=== PATIENT | female | born 2000 | race Caucasian/White ===

== ENCOUNTER 2022-05-28 18:37 | Emergency (ER) | payer OTHER, SELFPAY ==
--- NOTE | ~2022-05-28 | CT_ITS ---
EXAMINATION: CT abdomen pelvis w con DATE: 05/28/2022 22:53 INDICATION: UTI, flank pain TECHNIQUE: Computed tomography (CT) of the abdomen and pelvis was performed with 100 mL Omnipaque-350 intravenous contrast. Automated exposure control and iterative reconstruction technique were employe d. The dose-length product was 299.01 mGy-cm. COMPARISON: None. FINDINGS: Lower thorax: Left lower lobe granuloma/hamartoma. Liver: Normal. Biliary/Gallbladder: The gallbladder is partially collapsed. No bile duct dilation. Pancreas: No mass or duct dilation. Spleen: Normal. Adrenals:No mass. Kidneys: Patchy areas of hypoenhancement in the right upper pole, and to a lesser extent in the left upper pole. Simple left midpole cyst. Bilateral urothelial enhancement. GI tract: No small or large bowel dilation. Normal appendix. Mesentery/Peritoneum: No ascites, mass, or free air. Retroperitoneum: No mass. Pelvis: Bladder wall thickening with surrounding inflammatory change. IUD, in good position. Soft Tissues: Soft tissues and body wall unremarkable. Bones: No acute osseous finding. IMPRESSION: Cystitis, with bilateral ascending infection and bilateral pyelonephritis. Reviewed, dictated and finalized at location K.
[2022-05-28 18:55] VITALS: BP 105/65; PULSE 117; RESP 16; TEMP 37.8; O2SAT 98
[2022-05-28 19:12] LABS: Appearance Urine Slightly Cloudy (Clear); Bilirubin Urine 1+ (Negative); Blood Urine 3+ (Negative); Color Urine Yellow (Yellow); Glucose Urine UA Negative (Negative); Ketones Urine Trace mg/dL (Negative); Leukocyte Esterase Ur 2+ LEU/UL (Negative); Nitrate Urine Negative (Negative); Protein Urine 2+ mg/dL (Negative); Specific Grav Ur 1.015 (1.001-1.035); pH Urine 5.5 (5.0-9.0)
[2022-05-28 19:29] LABS: Mucus Urine Rare /lpf; RBC Urine >75 /hpf (0-2); Squamous Epithelial Cell Urine Many /hpf (Few); WBC Urine >75 /hpf
[2022-05-28 19:32] LABS: Add Urine Microscopic? YES
[2022-05-28 21:25] VITALS: BP 125/79; PULSE 95; RESP 20; O2SAT 100
--- NOTE | 2022-05-28 21:44 | ED.FEMALEGU ---
HPI - Female Genitourinary General Chief complaint: Urogenital-Female <Liza Mackenzie PA-C - Last Filed: 05/29/22 00:07> Stated complaint: i think i have a kidney infection <Liza Mackenzie PA-C - Last Filed: 05/29/22 00:07> Time Seen by Provider: 05/28/22 21:24 <Lzia Mackenzie PA-C - Last Filed: 05/29/22 00:07> Source: patient <Liza Mackenzie PA-C - Last Filed: 05/29/22 00:07> Mode of arrival: ambulatory <Liza Mackenzie PA-C - Last Filed: 05/29/22 00:07> Limitations: no limitations <Liza Mackenzie PA-C - Last Filed: 05/29/22 00:07> History of Present Illness HPI Narrative: This is a 21 year old female that presents to the ER for dysuria x 4 days. Associated with urinary frequency, flank pain and fevers. Denies vomiting. <Liza Mackenzie PA-C - Last Filed: 05/29/22 00:07> Related Data Allergies/Adverse reactions: Allergies Allergy/AdvReac Type Severity Reaction Status Date / Time No Known Allergies Allergy Verified 05/28/22 21:51 <Liza Mackenzie PA-C - Last Filed: 05/29/22 00:07> Review of Systems Review of Systems: CONSTITUTIONAL: Reports fever GASTROINTESTINAL: Reports flank pain, Denies nausea, vomiting GENITOURINARY: Reports dysuria. Denies hematuria. <Liza Mackenzie PA-C - Last Filed: 05/29/22 00:07> All systems reviewed & are unremarkable except as noted in HPI and below <Liza Mackenzie PA-C - Last Filed: 05/29/22 00:07> PENDING SALE TO [facility] Past Medical History Medical History: Medical History (Updated 05/29/22 @ 00:03 by Liza Mackenzie PA-C) No active medical problems <Liza Mackenzie PA-C - Last Filed: 05/29/22 00:07> Social History Social History: Social History (Updated 05/28/22 @ 21:45 by Liza Mackenzie PA-C) Smoking status: Never smoker <Liza Mackenzie PA-C - Last Filed: 05/29/22 00:07> Exam Narrative: GENERAL: Well-appearing, well-nourished, and in no acute distress. HEAD: Normocephalic, atraumatic. EYES: EOMI. CHEST: Clear to auscultation. No respiratory distress. No wheezes rales or rhonchi HEART: Regular rate and rhythm. No murmur heard. Normal peripheral pulses. ABDOMEN: Soft, nontender, nondistended, normal active bowel sounds. EXTREMITIES: Normal range of motion. No edema. SKIN: Warm, dry, no rash. NEURO: No focal deficits. Alert and oriented x3. PSYCH: Normal mood and affect <Liza Mackenzie PA-C - Last Filed: 05/29/22 00:07> Course COLLEGE ADVISOR/PA Physician Supervision For this patient encounter, I reviewed the COLLEGE ADVISOR or PA documentation, treatment plan, and medical decision making <Rc Shepherd MD - Last Filed: 05/29/22 03:16> Vital Signs Vital signs: Vital Signs Temperature 100.1 F H 05/28/22 18:55 Pulse Rate 117 H 05/28/22 18:55 Respiratory Rate 16 05/28/22 18:55 Blood Pressure 105/65 05/28/22 18:55 Pulse Oximetry 98 05/28/22 18:55 Oxygen Delivery Room Air 05/28/22 18:55 Temperature 98.4 F 05/29/22 00:10 Pulse Rate 97 05/29/22 00:10 Respiratory Rate 13 05/29/22 00:10 Blood Pressure 104/64 05/29/22 00:10 Pulse Oximetry 98 05/29/22 00:10 Oxygen Delivery Room Air 05/28/22 18:55 <Liza Mackenzie PA-C - Last Filed: 05/29/22 00:07> Vital Signs Temperature 100.1 F H 05/28/22 18:55 Pulse Rate 117 H 05/28/22 18:55 Respiratory Rate 16 05/28/22 18:55 Blood Pressure 105/65 05/28/22 18:55 Pulse Oximetry 98 05/28/22 18:55 Oxygen Delivery Room Air 05/28/22 18:55 Temperature 98.4 F 05/29/22 00:10 Pulse Rate 97 05/29/22 00:10 Respiratory Rate 13 05/29/22 00:10 Blood Pressure 104/64 05/29/22 00:10 Pulse Oximetry 98 05/29/22 00:10 Oxygen Delivery Room Air 05/28/22 18:55 <Rc Shepherd MD - Last Filed: 05/29/22 03:16> MDM - Female Genitourinary MDM Narrative Medical decision making narrative: Patient presents to the department for fevers and flank pain. Also noting urinary symptoms. Tachycardic
[2022-05-28 21:57] LABS: Basophils Percent Auto 0.2 % (0.2-1.2); Eosinophils Percent Auto 0.2 % (0-4.4); Hematocrit 41.8 % (37.0-47.0); Immature Granulocyte Absolute 0.03 K/mm3 (0.00-0.031); Immature Granulocyte Percent A 0.3 % (0-0.5); Lymphocytes Absolute Auto 1.37 K/mm3 (0.9-3.2); Lymphocytes Percent Auto 12.7 % (18.3-44.2); Mean Corpuscular HGB Conc 33.5 g/dl (32-36); Mean Corpuscular Hemoglobin 30.6 pg (26-34); Mean Corpuscular Volume 91.3 fl (80-100); Mean Platelet Volume 9.1 fl (7.4-10.4); Monocytes Percent Auto 9.1 % (2.6-8.5); Neutrophils Absolute Auto 8.3 K/mm3 (1.3-6.7); Neutrophils Percent Auto 77.5 % (45.5-73.1); Platelet Count Result 266 k/mm3 (150-375); Red Blood Count 4.58 M/mm3 (4.2-5.4); Red Cell Distribution Width 11.8 % (11.5-14.5); White Blood Count 10.8 K/mm3 (4.5-10.0)
[2022-05-28] MEDS: SODIUM CHLORIDE 0.9% IV 1,000 ML 999 ML IV CONT (21:57)
[2022-05-28 21:58] VITALS: BP 113/76; PULSE 102; RESP 23; TEMP 39.3; O2SAT 100
[2022-05-28 22:17] VITALS: BP 109/67; PULSE 97; RESP 24; O2SAT 99
[2022-05-28 22:29] VITALS: TEMP 37.7
[2022-05-28 22:39] LABS: Anion Gap 12 mmol/L (8-16); Blood Urea Nitrogen 8 mg/dL (7-17); Carbon Dioxide 25 mmol/L (22-30); Chloride 99 mmol/L (98-107); Estimated CRCL calculation 114 ml/min; Estimated Glomerular Filt Rate > 60; Glucose 98 mg/dL (65-110); Potassium 4.1 mmol/L (3.4-5.0); Sodium 136 mmol/L (137-145)
[2022-05-29 00:10] VITALS: BP 104/64; PULSE 97; RESP 13; TEMP 36.9; O2SAT 98
== END 2022-05-29 00:50 | disposition home or self-care (01) ==
PROVIDERS: Family Medicine; Physician Assistant; Emergency Provider Emergency Medicine
DX: N12 Tubulo-interstitial nephritis, not specified as acute or chronic (principal)
CPT/HCPCS: 36415; 74177; 80048; 81001; 81025; 85025; 87077; 87086; 87186; 96365; 96368; 99284; J0131; J0696; J7030; Q9967